=== PATIENT | male | born 1945 | race Asian ===

== ENCOUNTER 2022-12-24 12:20 | Emergency (ER) | payer OTHER ==
[~2022-12-24] VITALS: Ht 165.1 cm; Wt 68.0 kg
[2022-12-24 12:31] VITALS: BP_SYST 137
[2022-12-24] MEDS ORDERED: NACL 0.9% 1,000 ML IV SCH (12:45)
--- NOTE | 2022-12-24 12:50 | NUR ---
Patient BIB self from [facility] post positive KUB in the RUQ. Patient a&ox4 and stable. Placed on monitor and side rails up.
--- NOTE | 2022-12-24 12:55 | NUR ---
ER at bedside examining patient.
--- NOTE | 2022-12-24 13:02 | NUR ---
Lab at bedside
[2022-12-24 13:32] LABS: BASOPHILS # (AUTO) 0.1 K/uL (0.0-0.2); BASOPHILS % (AUTO) 0.7 % (0.0-2.0); EOSINOPHILS # (AUTO) 0.1 K/uL (0.0-0.4); EOSINOPHILS % (AUTO) 1.1 % (0.0-4.0); HEMOGLOBIN 13.1 g/dL (14.0-18.0); LYMPHOCYTES # (AUTO) 1.6 K/uL (1.0-5.5); LYMPHOCYTES % (AUTO) 18.1 % (20.5-51.5); MEAN CORPUSCULAR HEMOGLOBIN 24 pg (27-31); MEAN CORPUSCULAR HGB CONC 32 % (32-36); MEAN CORPUSCULAR VOLUME 74 fL (79.0-98.0); MONOCYTES % (AUTO) 11.8 % (1.7-9.3); NEUTROPHILS # (AUTO) 5.9 K/uL (1.8-7.7); NEUTROPHILS % (AUTO) 68.3 % (40.0-70.0); PLATELET COUNT (AUTO) 157 K/uL (130-430); RED BLOOD CELL COUNT(AUTO) 5.53 MIL/uL (4.2-6.2); RED CELL DISTRIBUTION WIDTH 15.4 % (9.0-15.0); WHITE BLOOD COUNT (AUTO) 8.7 K/uL (4.8-10.8)
[2022-12-24 13:54] LABS: ANION GAP 7 (5-15); CALCIUM 8.7 mg/dL (8.4-11.0); CHLORIDE 103 mmol/L (98-107); CREATININE 1.23 mg/dL (0.55-1.30); GLUCOSE 135 mg/dL (70-99); UREA NITROGEN, BLOOD 12 mg/dL (8-21)
[2022-12-24 14:04] LABS: ALANINE AMINOTRANSFERASE 24 U/L (12-78); ALBUMIN 3.7 g/dL (3.4-4.8); ASPARTATE AMINOTRANSFERASE 12 U/L (10-37); LIPASE 159 U/L (73-393); TOTAL BILIRUBIN 0.3 mg/dL (0.0-1.0)
--- NOTE | 2022-12-24 14:09 | NUR ---
Radiology at bedside.
[2022-12-24] MEDS ORDERED: DOCU283E RC (15:13)
[2022-12-24] MEDS ORDERED: DOCU-144 PO (15:13)
[2022-12-24] MEDS ORDERED: POLY238P14 PO (15:13)
--- NOTE | 2022-12-24 15:26 | NUR ---
Patient given written and verbal discharge instructions and verbalizes understanding. ER MD Driscoll discussed with patient the results and treatment provided. Patient in stable condition. ID arm band removed. IV catheter removed intact and dressing applied, no active bleeding. Patient educated on pain management and to follow up with PMD. Opportunity for questions provided and answered. Medication side effect fact sheet provided.
== END 2022-12-24 15:26 | disposition home or self-care (01) ==
LOC: SED 12:20
DX: K59.00 Constipation, unspecified (principal); K57.90 Diverticulosis of intestine, part unspecified, without perforation or abscess without bleeding; Q44.6 Cystic disease of liver; I11.0 Hypertensive heart disease with heart failure; I50.9 Heart failure, unspecified; Z79.899 Other long term (current) drug therapy
CPT/HCPCS: 36415; 76376; 80053; 83605; 83690; 85025; 87040; 99284